=== PATIENT | male | born 1995 | race Caucasian/White ===

== ENCOUNTER 2022-01-17 21:06 | Emergency (ER) | payer OTHER ==
[2022-01-17 21:48] LABS: HEMOGLOBIN 13.6 gm/dl (14.0-17.5); RED BLOOD COUNT 4.63 M/UL (4.20-5.50); WHITE BLOOD COUNT 9.9 K/UL (4.5-11.0)
[2022-01-17 21:54] LABS: BUN/CREATININE RATIO 20 (0-10)
== END 2022-01-18 01:14 ==
LOC: ER1 21:06
PROVIDERS: Student in an Organized Health Care Education/Training Program
DX: S30.811A Abrasion of abdominal wall, initial encounter (principal); M54.6 Pain in thoracic spine; M54.50 Low back pain, unspecified; F17.200 Nicotine dependence, unspecified, uncomplicated; V29.9XXA Motorcycle rider (driver) (passenger) injured in unspecified traffic accident, initial encounter; Y92.410 Unspecified street and highway as the place of occurrence of the external cause
CPT/HCPCS: 36415; 70450; 71045; 71260; 72125; 72170; 73030; 73080; 80053; 83605; 85025; 85610; 85730; 86850; 86900; 86901; 90471; 90715; 93005; 99284; G0480; Q9967